=== PATIENT | male | born 1995 | race Caucasian/White ===

== ENCOUNTER 2018-09-03 20:00 | Emergency (ER) | payer MEDICAID ==
--- NOTE | 2018-09-03 22:27 | RADIOLOGY REPORT (SQ) ---
EXAM DESCRIPTION: XR ANKLE 2 VIEWS COMPLETED DATE/TME: 09/03/2018 00:00 CLINICAL HISTORY: 22 years, Male, injury COMPARISON: EXAM DESCRIPTION: CLINICAL HISTORY: injury COMPARISON: None FINDINGS: 2 view(s) submitted. No fracture or dislocation is identified. Bone marrow attenuation is unremarkable. No radiopaque foreign body is identified. IMPRESSION: No acute fracture or dislocation. NUMBER OF VIEWS: TECHNIQUE: LIMITATIONS: None. FINDINGS: IMPRESSION: copyright 2010 [employer]- All Rights Reserved
--- NOTE | 2018-09-03 23:24 | ER Document Report ---
ED General - General Chief Complaint: Ankle Injury Stated Complaint: ANKLE PAIN/INJURY Time Seen by Provider: 09/03/18 23:14 Primary Care Provider: MIKE EVANGELISTA MD [Primary Care Provider] - Follow up as needed Mode of Arrival: Ambulatory Information source: Patient TRAVEL OUTSIDE OF THE [place] IN LAST 30 DAYS: No - HPI Patient complains to provider of: Right ankle injury Onset: Yesterday Onset/Duration: Constant Severity: Severe Pain Level: 4 Associated symptoms: None Exacerbated by: Movement, Walking Similar symptoms previously: Yes Recently seen / treated by doctor: No Notes: 22-year-old male coming in today for right ankle injury. He was walking up the steps last night and stepped on it wrong and twisted it. Has a lot of swelling on the lateral and medial side. Hurts to bear weight. Past Medical History - General Information source: Patient - Social History Smoking Status: Never Smoker Chew tobacco use (# tins/day): Yes Frequency of alcohol use: Occasional Drug Abuse: None Family History: Reviewed & Not Pertinent Patient has suicidal ideation: No Patient has homicidal ideation: No Renal/ Medical History: Denies: Hx Peritoneal Dialysis Review of Systems - Review of Systems Notes: Constitutional: No fevers. No chills. EENT: No eye redness. No eye pain. No ear pain. No sore throat. Cardiovascular: No chest pain. No palpitations. Respiratory: No cough. No shortness of breath. No respiratory distress. Gastrointestinal: No abdominal pain. No nausea, vomiting, or diarrhea. Genitourinary: Atraumatic. No lesions. No pain. No discharge. Musculoskeletal: Positive for right ankle pain and swelling Skin: No rash or lesions. Lymphatic: No swollen lymph nodes. Neurologic: No headache. No syncope. Psychiatric: No suicidal or homicidal ideation. Physical Exam - Vital signs Vitals: Temp Pulse Resp BP Pulse Ox 99.0 F 77 20 138/74 H 96 09/03/18 20:14 09/03/18 20:14 09/03/18 20:14 09/03/18 20:14 09/03/18 20:14 - Notes Notes: General: Well-developed, well-nourished. In no acute distress. Non-toxic appearing. Cardiac: Well-perfused. Regular rate and rhythm. No murmurs, rubs, or gallops. Pulmonary: No respiratory distress. No cyanosis. Bilateral lung fiels are clear to auscultation. Abdominal: Non-distended. Non-rigid. Bowels sounds are present in all four quadrants. No guarding or rebound. HEENT: Head is atraumatic. Conjunctivae not reddened. No tearing. PERRL. EOMI. Orbits atraumatic. No periorbital swelling or erythema. Oropharynx is without erythema, swelling, or exudates. Neck: Supple. No adenopathy. No meningismus. Dermatologic: Warm with good turgor. No rash. Atraumatic. Chest: Atraumatic. No chest wall tenderness to palpation. Musculoskeletal: Right ankle soft tissue swelling over the medial and lateral malleoli. No deformity. Normal range of motion. Distal neurovascular exam is intact Genitourinary: Examination deferred Neurologic: No gross neurologic deficits. Psychiatric: Normal mood. Course - Vital Signs Vital signs: Temp Pulse Resp BP Pulse Ox 99.0 F 77 20 138/74 H 96 09/03/18 20:14 09/03/18 20:14 09/03/18 20:14 09/03/18 20:14 09/03/18 20:14 - Diagnostic Test Radiology reviewed: Reports reviewed Discharge - Discharge Clinical Impression: Ankle sprain Qualifiers: Encounter type: initial encounter Involved ligament of ankle: unspecified ligament Laterality: right Qualified Code(s): S93.401A - Sprain of unspecified ligament of right ankle, initial encounter Condition: Good Disposition: HOME, SELF-CARE Instructions: Romain Wrap ([facility]), Ice & Elevation ([facility]), Use of Crutches ([facility]), Ice Packs ([facility]), Sprained Ankle ([facility]) Additional Instructions: You may use ibuprofen 200 mg [id number] tablets 4 tablets at a time every 8 hours as needed for pain/inflammation Referrals: MIKE EVANGELISTA MD [Primary Care Provider] - Follow up as needed ABIMAEL CALVERT MD [ACTIVE STAFF] - 09/17/18
[2018-09-03 23:35] VITALS: BP 124/82
== END 2018-09-03 23:37 | disposition home or self-care (01) ==
LOC: ER 20:00
DX: S93.401A Sprain of unspecified ligament of right ankle, initial encounter (principal); X50.0XXA Overexertion from strenuous movement or load, initial encounter
CPT/HCPCS: 99283

== ENCOUNTER 2018-12-22 21:25 | Emergency (ER) | payer MEDICAID ==
--- NOTE | 2018-12-23 00:04 | ER Document Report ---
HPI - HPI Time Seen by Provider: 12/22/18 23:50 Pain Level: 3 Context: Patient is a 23-year-old male who presents emergency department with a chief complaint of "bug bites." States that he noticed them about 2 days ago. He has been putting hydrocortisone cream on them to help. He denies any fever, nausea, vomiting, body aches, or chills. He is currently on amitriptyline and Zoloft. - CONSTITUTIONAL Constitutional: DENIES: Fever, Chills - EENT EENT: DENIES: Sore Throat - CARDIOVASCULAR Cardiovascular: DENIES: Chest pain - RESPIRATORY Respiratory: DENIES: Trouble Breathing, Coughing - GASTROINTESTINAL Gastrointestinal: DENIES: Abdominal Pain, Nausea, Patient vomiting - MUSCULOSKELETAL Musculoskeletal: DENIES: Extremity pain - DERM Skin Color: Normal Skin Problems: Pustule - Bilateral elbows and lateral right calf; all have expressed purulent drainage. Past Medical History - General Information source: Patient - Social History Smoking Status: Never Smoker Frequency of alcohol use: None Drug Abuse: None Family History: Reviewed & Not Pertinent Renal/ Medical History: Denies: Hx Peritoneal Dialysis Vertical Provider Document - CONSTITUTIONAL Agree With Documented VS: Yes Exam Limitations: No Limitations General Appearance: No Apparent Distress - INFECTION CONTROL TRAVEL OUTSIDE OF THE [place] IN LAST 30 DAYS: No - HEENT HEENT: Atraumatic - CARDIOVASCULAR Cardiovascular: Regular Rate, Regular Rhythm Pulses: Normal: Radial - GI/ABDOMEN Gastrointestinal: Abdomen Soft - MUSCULOSKELETAL/EXTREMETIES Musculoskeletal/Extremeties: FROM, Tender - at erythematuous sites, No Edema - NEURO Level of Consciousness: Awake, Alert, Appropriate Motor/Sensory: No Motor Deficit, No Sensory Deficit - DERM Integumentary: Warm, Dry Adult Front & Back Diagram: 1 - erythematous site 2 - erythematous site 3 - erythematous site Course - Re-evaluation Re-evalutation: 12/23/18 00:04 Patient presents with symptoms most consistent with an acute cellulitis. Vitals within normal limits. Patient does not meet sepsis criteria is overall very well in appearance. Exam and history are not consistent with DVT. Patient will be started on Keflex. Since he is on Amytriptaline, I will hold off on bactrim and he will follow up closely with PCP. At this time will discharge with return precautions and follow-up recommendations. Verbal discharge instructions given a the bedside and opportunity for questions given. Medication warnings reviewed. Patient is in agreement with this plan and has verbalized understanding of return precautions and the need for primary care follow-up in the next 24-72 hours. - Vital Signs Vital signs: Temp Pulse Resp BP Pulse Ox 98.3 F 91 16 129/78 H 97 12/22/18 21:45 12/22/18 21:45 12/22/18 21:45 12/22/18 21:45 12/22/18 21:45 Discharge - Discharge Clinical Impression: Cellulitis Qualifiers: Site of cellulitis: extremity Site of cellulitis of extremity: upper extremity Laterality: unspecified laterality Qualified Code(s): L03.119 - Cellulitis of unspecified part of limb Condition: Stable Disposition: HOME, SELF-CARE Additional Instructions: The rash is likely due to infection of your skin. You need to take the antibiotics as prescribed. Do not stop even if the rash goes away until you have completed all the antibiotics. The area of redness was traced out here in the emergency department with a marking pen. You need to return to emergency department if the redness spreads outside of this area by more than 2 cm in any direction. You should also return if you develop fevers with temperature greater than 101, persistent vomiting, worsening pain, or have any other symptoms that are concerning to you. Prescriptions: Cephalexin Monohydrate [Keflex 500 mg Capsule] 500 mg PO Q6H 7 Days #28 capsule Referrals: MIKE EVANGELISTA MD [Primary Care Provider] - Follow up in 3-5 days
[2018-12-23] MEDS ORDERED: CEPHALEXIN 500 MG CAPSULE PO ONE (00:06)
[2018-12-23 01:50] VITALS: BP 129/74
== END 2018-12-23 00:37 | disposition home or self-care (01) ==
LOC: ER 21:25
DX: L03.119 Cellulitis of unspecified part of limb (principal); Z79.899 Other long term (current) drug therapy
CPT/HCPCS: 99283

== ENCOUNTER 2018-12-26 14:48 | Emergency (ER) | payer MEDICAID ==
[2018-12-26 14:57] VITALS: BP 129/77
[2018-12-26] MEDS ORDERED: CLINDAMYCIN HCL 150 MG CAPSULE PO ONE (15:39)
[2018-12-26] MEDS ORDERED: HYDROCODONE/ACETAMINOPHEN 5-325 MG (6 TAB/ER DISP) PO PRN (15:43)
--- NOTE | 2018-12-26 15:52 | ER Document Report ---
HPI - HPI Patient complains to provider of: right elbow infection Time Seen by Provider: 12/26/18 15:26 Pain Level: 2 Context: 23-year-old male presents emergency department for worsening infection in his right elbow. He was seen here in the middle last week and diagnosed with cellulitis and placed on Keflex. 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 Patient states that the other wounds healed but the cellulitis on his right elbow started to ulcerate a little bit and the skin necrosis and is concerned. Patient denies fevers or chills, nausea or vomiting, is able to move his elb, complains of warmth to the elbow, states that he pulled "cherokee green glob of Play-Maki out of the spot where the hole is". No other complaints. Past Medical History - Social History Smoking Status: Unknown if Ever Smoked Family History: Reviewed & Not Pertinent Renal/ Medical History: Denies: Hx Peritoneal Dialysis Vertical Provider Document - CONSTITUTIONAL Notes: PHYSICAL EXAMINATION: Reviewed vital signs and charting by RN GENERAL: Alert, interacts well. No acute distress. HEAD: Normocephalic, atraumatic. EYES: Pupils equal and round. Extraocular movements intact. ENT: Oral mucosa moist, tongue midline. NECK: Full range of motion. Trachea midline. EXTREMITIES: Moves all 4 extremities spontaneously. No edema, No cyanosis. PSYCH: Normal affect, normal mood. SKIN: Warm, dry, normal turgor. Mild edema on the right olecranon with warmth and erythema, there is a 1 mm size hole with some mild necrosis of the skin not actively oozing any purulent discharge. - INFECTION CONTROL TRAVEL OUTSIDE OF THE [place] IN LAST 30 DAYS: No Course - Re-evaluation Re-evalutation: 12/26/18 15:53 Patient returns from ER visit last week. Patient was unable to see his primary as he made an appointment but missed it. Patient was placed on Keflex. A wound culture was collected. Plan is to place him on clindamycin p.o. and have him follow-up with his primary provider in the next 48 to 72 hours. Patient is able to move his elbow and I do not suspect a septic joint. Unclear if this is treatment failure or if it is secondary to an arthropod or DrMichelet bite. Patient has been given strict return precautions and is currently stable for discharge. - Vital Signs Vital signs: Temp Pulse Resp BP Pulse Ox 98.0 F 84 16 129/77 H 100 12/26/18 14:56 12/26/18 14:56 12/26/18 14:56 12/26/18 14:56 12/26/18 14:56 Discharge - Discharge Clinical Impression: Cellulitis Qualifiers: Site of cellulitis: extremity Site of cellulitis of extremity: upper extremity Laterality: right Qualified Code(s): L03.113 - Cellulitis of right upper limb Condition: Good Disposition: HOME, SELF-CARE Additional Instructions: You were seen in the emergency department this afternoon for right elbow cellulitis and breakdown of the skin not made better from antibiotics at your previous visit. I have changed her antibiotics to something called clindamycin. He should take 3 capsules 3 times per day for 7 days. Please stop taking the Keflex. Also we have sent a sample of the wound for culture to assess what the organism is causing the infection. Please keep the area clean and covered. Please follow-up with your primary doctor in the next 48 to 72 hours. Please return to the emergency department if you develop fevers, worsening redness or swelling at the elbow, severe elbow pain and inability to move your elbow, worsening necrosis of your skin, red streaks going up your arm, or any other concerning symptoms Prescriptions: Clindamycin HCl [Cleocin 150 mg Capsule] 450 mg PO Q8H #56 capsule Referrals: MIKE EVANGELISTA MD [Primary Care Provider] - Follow up as needed
== END 2018-12-26 16:00 | disposition home or self-care (01) ==
LOC: ER 14:48
DX: L03.113 Cellulitis of right upper limb (principal)
CPT/HCPCS: 99283; 87070; 87205; 87077; 87186; J3490

== ENCOUNTER 2018-12-30 20:53 | Emergency (ER) | payer MEDICAID ==
[2018-12-30 20:58] VITALS: BP 141/77
--- NOTE | 2018-12-30 23:39 | ER Document Report ---
ED Extremity Problem, Upper - General Chief Complaint: Arm Pain Stated Complaint: ARM PAIN Time Seen by Provider: 12/30/18 22:28 Primary Care Provider: MIKE EVANGELISTA MD [Primary Care Provider] - Follow up as needed Mode of Arrival: Ambulatory Information source: Patient Notes: 23-year-old male presented to ED for complaint of pain to his right elbow. He has been seen twice in the last week with diagnosis of cellulitis with MRSA. He has been prescribed antibiotics. He states he forgets to take them at times. He came to the emergency room stating that he needs some more narcotics as the pain is more than what is fixed with Tylenol or Motrin. Patient was informed that what he needs to do is take his antibiotics as prescribed at the scheduled they are prescribed and to soak his arm in Epson salt 3 times a day as he was instructed. TRAVEL OUTSIDE OF THE [place] IN LAST 30 DAYS: No - HPI Patient complains to provider of: Right, Elbow Onset: Other - A couple weeks Recent injury: No Quality of pain: Sharp, Throbbing Severity of pain: Moderate Pain Level: 4 Associated symptoms: Other - Pain to the right elbow that he is not properly pradeep ing his antibiotics for Exacerbated by: Movement, Exertion Relieved by: Nothing Similar symptoms previously: Yes Recently seen / treated by doctor: Yes - Related Data Allergies/Adverse Reactions: No Known Allergies Allergy (Unverified 12/30/18 22:20) Past Medical History - General Information source: Patient - Social History Smoking Status: Never Smoker Chew tobacco use (# tins/day): No Frequency of alcohol use: None Drug Abuse: None Family History: Reviewed & Not Pertinent Patient has suicidal ideation: No Patient has homicidal ideation: No - Past Medical History Cardiac Medical History: Reports: None Pulmonary Medical History: Reports: None EENT Medical History: Reports: None Neurological Medical History: Reports: None Endocrine Medical History: Reports: None Renal/ Medical History: Reports: None Malignancy Medical History: Reports None GI Medical History: Reports: None Musculoskeletal Medical History: Reports None Skin Medical History: Reports None Psychiatric Medical History: Reports: None Traumatic Medical History: Reports: None Infectious Medical History: Reports: None Surgical Hx: Negative Past Surgical History: Reports: None Review of Systems - Review of Systems Constitutional: No symptoms reported EENT: No symptoms reported Cardiovascular: No symptoms reported Respiratory: No symptoms reported Gastrointestinal: No symptoms reported Genitourinary: No symptoms reported Male Genitourinary: No symptoms reported Musculoskeletal: No symptoms reported Skin: Other - Infected right elbow with a cellulitis that he has been treated for twice in the last week. States he is not getting pain relief with the Tylenol and Motrin and he is out of his narcotics Hematologic/Lymphatic: No symptoms reported Neurological/Psychological: No symptoms reported -: Yes All other systems reviewed and negative Physical Exam - Vital signs Vitals: Temp Pulse Resp BP Pulse Ox 98.6 F 85 18 141/77 H 99 12/30/18 20:57 12/30/18 20:57 12/30/18 20:57 12/30/18 20:57 12/30/18 20:57 Interpretation: Normal - General General appearance: Appears well, Alert - HEENT Head: Normocephalic, Atraumatic Eyes: Normal Pupils: PERRL - Respiratory Respiratory status: No respiratory distress Chest status: Nontender Breath sounds: Normal Chest palpation: Normal - Cardiovascular Rhythm: Regular Heart sounds: Normal auscultation Murmur: No - Abdominal Inspection: Normal Distension: No distension Bowel sounds: Normal Tenderness: Nontender Organomegaly: No organomegaly - Back Back: Normal, Nontender - Extremities General upper extremity: Normal inspection, Nontender, Normal color, Normal ROM, Normal temperature General lower extremity: Normal inspection, Nontender, Normal color, Normal ROM, Normal temperature, Normal weight bearing. No: Malorie's sign - Neurological Neuro grossly intact: Yes Cognition: Normal Orientation: AAOx4 Willie Coma Scale Eye Opening: Spontaneous [place] Coma Scale Verbal: Oriented Willie Coma Scale Motor: Obeys Commands [place] Coma Scale Total: 15 Speech: Normal Motor strength normal: LUE, RUE, LLE, RLE Sensory: Normal - Psychological Associated symptoms: Normal affect, Normal mood - Skin Skin Temperature: Warm Skin Moisture: Dry Skin Color: Normal Location of irregularity: Extremities - Right elbow Character of irregularity: Erythematous Irregularity with: Swelling, Tenderness, Warmth Course - Re-evaluation Re-evalutation: 12/31/18 02:43 Patient came very angry with his discharge instructions stated he knew what he needed to do he came in here to get more pain medicine not to get more instructions. He was very angry and left without his discharge instructions. - Vital Signs Vital signs: Temp Pulse Resp BP Pulse Ox 98.6 F 85 18 141/77 H 99 12/30/18 20:57 12/30/18 20:57 12/30/18 20:57 12/30/18 20:57 12/30/18 20:57 Discharge - Discharge Clinical Impression: Cellulitis of right elbow Condition: Stable Disposition: HOME, SELF-CARE Additional Instructions: CELLULITIS: You have an infection of your skin and underlying soft tissues called cellulitis. This is due to bacteria, which can enter through any break in the skin, or even through an irritated hair follicle. Untreated, cellulitis will usually worsen. Antibiotics are required. Usually, warm packs or warm soaks, and elevation of the infected area are recommended. You should start getting better within 24 to 36 hours. Most infections respond quickly to the right medication. Follow-up care is important, however, to check for abscess (boil) formation, unsuspected foreign body, or resistant infection. If you develop fever, chills, or if the area of infection is becoming rapidly more swollen or painful, call the doctor at once. MRSA CELLULITIS: You have an infection of your skin and underlying soft tissues called cellulitis. This is due to bacteria, which can enter through any break in the skin, or even through an irritated hair follicle. Untreated, cellulitis will usually worsen and may form an abscess which requires draining. Although many bacterial organisms can cause cellulitis and abscess formations, the most likely bacteria is Methicillin-Resistant Staph Aureus, or MRSA for short. Antibiotics are required. Usually, warm packs or warm soaks, and elevation of the infected area are recommended. You should start getting better within 24 to 36 hours. Most infections respond quickly to the right medication. Follow-up care is important, however, to check for abscess (boil) formation, unsuspected foreign body, or resistant infection. If you develop fever, chills, or if the area of infection is becoming rapidly more swollen or painful, call the doctor at once. ANTIBIOTIC THERAPY: You have been given an antibiotic prescription. It's important that you take all the medication, unless instructed otherwise by your physician. Failure to complete the entire course can result in relapse of your condition. Common side effects of antibiotics include nausea, intestinal cramping, or diarrhea. Women may develop vaginal yeast infections, and babies can get yeast (thrush) in the mouth following the use of antibiotics. Contact your physician if you develop significant side effects from this medication. Allergy to this antibiotic can result in hives, wheezing, faintness, or itching. If symptoms of allergy occur, stop the medication and call the doctor. CLINDAMYCIN: You have been given a prescription for the antibiotic clindamycin. It is often prescribed for infections in the mouth, such as dental infections or abscesses, and for skin infections due to MRSA. It's important that you take all the medication, unless instructed otherwise by your physician. Failure to complete the entire course can result in relapse of your condition. Common side effects of antibiotics include nausea, intestinal cramping, or diarrhea. Women may develop vaginal yeast infections, and babies can get yeast (thrush) in the mouth following the use of antibiotics. Contact your physician if you develop significant side effects from this medication. Allergy to this antibiotic can result in hives, wheezing, faintness, or itching. If symptoms of allergy occur, stop the medication and call the doctor. Epsom Salt Soaks Soak the wound area in a container of warm epsom salt water. If you can't get the wound area into a bucket or schwartz, use a folded towel soaked in the epsom salt solution and apply to the area. Use clean hot tap water (about the temperature of a very warm bath), mixing in about one (1) teaspoon for every pint of water. Two gallon --> 16 teaspoons Epsom Salts One gallon --> 8 teaspoons Epsom Salts Two quarts --> 4 teaspoons Epsom Salts One quart --> 2 teaspoons Epsom Salts Soak the wound for about 20 minutes while gently moving it around in the water. Repeat this four (4) times a day. FOLLOW-UP CARE: If you have been referred to a physician for follow-up care, call the physicians office for an appointment as you were instructed or within the next two days. If you experience worsening or a significant change in your symptoms, notify the physician immediately or return to the Emergency Department at any time for re-evaluation. Referrals: MIKE EVANGELISTA MD [Primary Care Provider] - Follow up as needed
== END 2018-12-30 23:40 | disposition home or self-care (01) ==
LOC: ER 20:53
DX: L03.113 Cellulitis of right upper limb (principal); M79.601 Pain in right arm; Z86.14 Personal history of Methicillin resistant Staphylococcus aureus infection
CPT/HCPCS: 99283

== ENCOUNTER 2019-05-30 20:49 | Emergency (ER) | payer MEDICAID ==
[2019-05-30 21:04] VITALS: BP 129/66
== END 2019-05-31 02:14 | disposition left against medical advice (07) ==
LOC: ER 20:49
DX: Z53.21 Procedure and treatment not carried out due to patient leaving prior to being seen by health care provider (principal)

== ENCOUNTER 2019-06-23 21:25 | Emergency (ER) | payer MEDICAID ==
--- NOTE | 2019-06-23 22:08 | ER Document Report ---
HPI - HPI Time Seen by Provider: 06/23/19 21:58 Pain Level: 2 Context: Patient is a 23-year-old male who presents the emergency department with a chief complaint of a fever, body aches, and rhinorrhea. Patient states that her symptoms started 3 days ago. He has been taking DayQuil and NyQuil to help with his symptoms. Denies any medical problems. Does not take any medications. - CONSTITUTIONAL Constitutional: REPORTS: Chills - and body aches. DENIES: Fever - EENT EENT: DENIES: Sore Throat, Ear Pain, Nasal Drainage-Clear, Congestion, Eye problems - NEURO Neurology: DENIES: Headache - CARDIOVASCULAR Cardiovascular: DENIES: Chest pain - RESPIRATORY Respiratory: REPORTS: Coughing - GASTROINTESTINAL Gastrointestinal: DENIES: Abdominal Pain, Nausea, Patient vomiting - REPRODUCTIVE Reproductive: DENIES: : - MUSCULOSKELETAL Musculoskeletal: DENIES: Extremity pain - DERM Skin Color: Normal Skin Problems: None Past Medical History - General Information source: Patient - Social History Smoking Status: Never Smoker Chew tobacco use (# tins/day): No Frequency of alcohol use: Occasional Drug Abuse: None Family History: Reviewed & Not Pertinent Patient has suicidal ideation: No Patient has homicidal ideation: No Renal/ Medical History: Denies: Hx Peritoneal Dialysis Vertical Provider Document - CONSTITUTIONAL Agree With Documented VS: Yes Exam Limitations: No Limitations General Appearance: No Apparent Distress - INFECTION CONTROL TRAVEL OUTSIDE OF THE [place] IN LAST 30 DAYS: No - HEENT HEENT: Atraumatic, Normocephalic, PERRLA, Pharyngeal Tenderness, Pharyngeal Erythema. negative: Conjuctival Injection, Pharyngeal Exudate, Tympanic Membrane Red, Tympanic Membrane Bulging - NECK Neck: Normal Inspection, Supple - RESPIRATORY Respiratory: No Respiratory Distress - CARDIOVASCULAR Cardiovascular: Regular Rate, Regular Rhythm Pulses: Normal: Radial - MUSCULOSKELETAL/EXTREMETIES Musculoskeletal/Extremeties: FROM - NEURO Level of Consciousness: Awake, Alert, Appropriate - DERM Integumentary: Warm, Dry, No Rash Course - Re-evaluation Re-evalutation: 06/23/19 Presentation is most consistent with a viral upper respiratory infection. Influenza tests are negative. Patient is overall well appearance, vitals within normal limits, well-hydrated. Patient denies any headache, neck pain, and has no evidence of meningismus on examination. Lungs are clear bilaterally. No evidence of respiratory distress. Based on clinical exam and history, I do not suspect an acute pneumonia, meningitis, strep pharyngitis, or an acute encephalitis. No laboratory or imaging testing is indicated at this time. Will discharge patient with return precautions and followup recommendations. They are in agreement this plan have verbalized understanding return precautions. - Vital Signs Vital signs: Temp Pulse Resp BP Pulse Ox 99.5 F 85 16 123/74 99 06/23/19 21:38 06/23/19 21:38 06/23/19 21:38 06/23/19 21:38 06/23/19 21:38 Discharge - Discharge Clinical Impression: Body aches, Flu-like symptoms, Upper respiratory infection, viral Condition: Stable Disposition: HOME, SELF-CARE Additional Instructions: You were seen today in the emergency department for a cough, cold chills, and diarrhea. Your symptoms are most consistent with an upper respiratory viral infection. Please take acetaminophen 1000 mg and ibuprofen 600 mg every 6 hours as needed for any body aches or fever. You have been given cetirizine, medication to help with your runny nose. Take 1 tablet every day while you have symptoms. You have also been given Flonase, medication to help with the inflammation in your nose. Place 1 spray to each nostril twice a day. If you develop a fever greater than 100.4 F while on ibuprofen and acetaminophen, develop shortness of breath, difficulty breathing, or any symptoms that are worrisome to you, please return to the emergency department. Prescriptions: Cetirizine HCl [All Day Allergy] 10 mg PO DAILY #30 tablet Fluticasone Propionate [Flonase Nasal [place] 50 Mcg/[place] 16 gm] 2 sprays NASL DAILY #1 inhaler Referrals: MIKE EVANGELISTA MD [Primary Care Provider] - Follow up tomorrow
[2019-06-23] MEDS ORDERED: CETIRIZINE 10 MG TABLET PO ONE (22:19)
[2019-06-23 23:53] LABS: A TYPE INFLUENZA AG NEGATIVE (NEGATIVE); B INFLUENZA AG NEGATIVE (NEGATIVE)
[2019-06-24 00:15] VITALS: BP 114/66
== END 2019-06-24 00:15 | disposition home or self-care (01) ==
LOC: ER 21:25
DX: J06.9 Acute upper respiratory infection, unspecified (principal); B97.89 Other viral agents as the cause of diseases classified elsewhere; M79.10 Myalgia, unspecified site; R50.9 Fever, unspecified; J34.89 Other specified disorders of nose and nasal sinuses; R05 Cough
CPT/HCPCS: 99283; 87804; J3490